=== PATIENT | female | born 1965 | race Caucasian/White ===

== ENCOUNTER 2018-09-23 17:31 | Emergency (ER) | payer OTHER ==
[~2018-09-23] VITALS: Ht 170.2 cm; Wt 99.8 kg
[2018-09-23] MEDS ORDERED: DIPHENHYDRAMINE HCL INJ 50 MG/ML VIAL IV STA (17:35)
[2018-09-23] MEDS ORDERED: METHYLPREDNISOLONE SOD SUCC 125 MG/2ML VIAL IV STA (17:35)
[2018-09-23] MEDS ORDERED: FAMOTIDINE 20 MG/2 ML VIAL IV ONE (17:35)
[2018-09-23] MEDS ORDERED: ONDANSETRON HCL INJ 2MG/ML 2ML 2 MG/ML VIAL IV ONE (17:45)
[2018-09-23] MEDS ORDERED: SODIUM CHLORIDE FLUSH 10 ML SYR INJ PRN (17:45)
[2018-09-23] MEDS ORDERED: SODIUM CHLORIDE 0.9% 1000ML 1,000 ML IV SCH (18:15)
[2018-09-23] MEDS ORDERED: LORAZEPAM INJ 2 MG/ML VIAL IV STA (18:18)
--- NOTE | 2018-09-23 18:27 | Diagnostic Imaging Report ---
EXAMINATION: CXR 2 VIEW - HOPD INDICATION: Shortness of breath COMPARISON: None FINDINGS: TUBES and LINES: None. LUNGS: Lungs are well inflated. Lungs are clear. There is no evidence of pneumonia or pulmonary edema. PLEURA: No pleural effusion or pneumothorax. HEART AND MEDIASTINUM: The cardiomediastinal silhouette is unremarkable. BONES AND SOFT TISSUES: No acute osseous lesion. Soft tissues are unremarkable. UPPER ABDOMEN: No free air under the diaphragm. IMPRESSION: No acute thoracic abnormality. Signed by: Dr. Kaz Marcus M.D. on 09/23/2018 6:24 PM
--- NOTE | 2018-09-23 18:42 | NUR ---
WARM BLANKETS GIVEN
== END 2018-09-23 19:44 | disposition home or self-care (01) ==
LOC: FSED 17:31
DX: F45.8 Other somatoform disorders (principal); R06.00 Dyspnea, unspecified; E05.90 Thyrotoxicosis, unspecified without thyrotoxic crisis or storm; G62.9 Polyneuropathy, unspecified
CPT/HCPCS: 71046; 80053; 84484; 85025; 85379; 93005; 99284; J1200; J2060; J2405; J2930